=== PATIENT | male | born 1965 | race American Indian/Alaskan Native ===

== ENCOUNTER → 2016-10-14 | Outpatient (CLI) | payer MEDICAID, OTHER ==
[~2016-10-14] MED LIST: ASPI-496 PO; GLYB5TAB3 PO; IBUP-1222 PO; INSU100V13 SQ; LOSA1TAB16 PO; METF850T2 PO; OMEG-14 PO; OMEP-110 PO
== END | disposition home or self-care (01) ==
LOC: CFH 10:55
PROVIDERS: ATTEND Internal Medicine Endocrinology, Diabetes & Metabolism
DX: Z13.6 Encounter for screening for cardiovascular disorders (principal); J84.10 Pulmonary fibrosis, unspecified; Z82.49 Family history of ischemic heart disease and other diseases of the circulatory system
CPT/HCPCS: 75571